=== PATIENT | male | born 1970 ===

== ENCOUNTER 2017-05-16 08:25 | Emergency (ER) | payer SELFPAY ==
[2017-05-16 08:31] VITALS: TEMP 98.2
[2017-05-16] MEDS ORDERED: Sodium Chloride 0.9% 1,000 ML IV ONE (09:40)
[2017-05-16] MEDS ORDERED: Sodium Chloride 0.9% 1,000 ML ONE (09:55)
[2017-05-16 10:12] LABS: BASO # 0.1 K/uL (0.0-0.2); BASO % 0.6 % (0.0-2.0); EOS % 0.4 % (0.0-4.0); HEMATOCRIT 41.2 % (35.0-51.0); LYMPH # 1.2 K/uL (1.0-4.3); LYMPH % 9.8 % (20.0-40.0); MEAN CELL VOLUME 89.5 fL (80.0-94.0); MEAN CORPUSCULAR HGB CONC 33.5 g/dL (33.0-37.0); MEAN PLATELET VOLUME 8.1 fL (7.2-11.7); MONO # 0.5 K/uL (0.0-0.8); MONO % 4.2 % (0.0-10.0); PLATELET COUNT 226 K/uL (130-400); RED CELL DISTRIBUTION WIDTH 13.8 % (11.5-14.5)
[2017-05-16 10:13] LABS: WHITE BLOOD COUNT 12.5 K/uL (4.8-10.8)
[2017-05-16 10:15] LABS: RBC URINE 17 /hpf (0-3); URINE BACTERIA RARE (<OCC); URINE BILIRUBIN NEGATIVE (NEGATIVE); URINE BLOOD 2+ (NEGATIVE); URINE COLOR Yellow (YELLOW); URINE GLUCOSE (UA) NORMAL (Normal); URINE KETONE NEGATIVE (NEGATIVE); URINE LEUKOCYTE ESTERASE NEG Leu/uL (Negative); URINE PROTEIN 1+ mg/dL (NEGATIVE); URINE UROBILINOGEN NORMAL mg/dL (0.2-1.0); WBC URINE 2 /hpf (0-5)
[2017-05-16 10:29] LABS: CHLORIDE 103 mmol/L (98-107)
[2017-05-16 10:30] LABS: POTASSIUM 3.7 mmol/L (3.6-5.2); SODIUM 139 mmol/L (132-148)
--- NOTE | 2017-05-16 10:31 | C.PDOC ---
History Of Present Illness 46-year-old male, presents to the emergency department with complaints of diffuse abdominal pain, that is associated with distention, that started last night. Patient denies nausea/vomiting, diarrhea, fevers, chills, shortness of breath or any other associated symptoms. No other complaints at this time. Time Seen by Provider: 05/16/17 09:12 Chief Complaint (Nursing): Abdominal Pain History Per: Patient History/Exam Limitations: no limitations Onset/Duration Of Symptoms: Days Current Symptoms Are (Timing): Still Present Severity: Moderate Past Medical History Reviewed: Historical Data, Nursing Documentation, Vital Signs Vital Signs: Last Vital Signs Temp 98.2 F 05/16/17 12:12 Pulse 76 05/16/17 12:12 Resp 20 05/16/17 12:12 BP 117/82 05/16/17 12:12 Pulse Ox 97 05/16/17 12:12 - Medical History PMH: Hepatitis - [facility] Procedures CLOSED BIOPSY OF SKIN AND SUBCUTANEOUS TISSUE (11/16/13) COLONOSCOPY (01/09/14) ESOPHAGOGASTRODUODENOSCOPY [EGD] W/CLOSED BIOPSY (01/09/14) Family History: States: No Known Family Hx - Social History Hx Tobacco Use: No Hx Alcohol Use: No Hx Substance Use: No - Immunization History Hx Tetanus Toxoid Vaccination: No Hx Influenza Vaccination: No Hx Pneumococcal Vaccination: No Review Of Systems Except As Marked, All Systems Reviewed And Found Negative. Constitutional: Negative for: Fever, Chills Cardiovascular: Negative for: Chest Pain, Palpitations Respiratory: Negative for: Shortness of Breath Gastrointestinal: Positive for: Abdominal Pain (distention). Negative for: Nausea, Vomiting, Diarrhea, Constipation, Melena, Hematochezia Musculoskeletal: Negative for: Back Pain Skin: Negative for: Rash Neurological: Negative for: Weakness, Numbness Physical Exam - Physical Exam Appears: Non-toxic, No Acute Distress Skin: Warm, Dry, No Rash Head: Atraumatic, Normacephalic Eye(s): bilateral: Normal Inspection, PERRL Nose: Normal Oral Mucosa: Moist Lips: Normal Appearing Neck: Normal ROM Chest: Symmetrical, No Tenderness Cardiovascular: Rhythm Regular, No Murmur Respiratory: Normal Breath Sounds, No Accessory Muscle Use Gastrointestinal/Abdominal: Soft, Tenderness (epigastric/RUQ), Distention, No Guarding, No Rebound Back: Normal Inspection, No CVA Tenderness Extremity: Normal ROM, No Swelling Neurological/Psych: Oriented x3, Normal Speech, Normal Motor Gait: Steady ED Course And Treatment - Laboratory Results Result Diagrams: 05/16/17 09:52 05/16/17 09:52 ECG: Interpreted By Me ECG Rhythm: Sinus Bradycardia ECG Interpretation: Normal Rate From EC O2 Sat by Pulse Oximetry: 100 (on RA) Pulse Ox Interpretation: Normal Medical Decision Making Medical Decision Making: Results were discussed with the patient. On re-exam, the patient reports improvement of symptoms. BP improved. Lungs are CTA, heart is RRR, abdomen is soft, non-tender and patient is tolerating PO well. Ambulatory in the ED with steady gait. Follow up with the medical doctor within 1-2 days. Return if worsened. Disposition - Disposition Referrals: [facility] at [facility] [Outside] Disposition: HOME/ ROUTINE Disposition Time: 12:00 Condition: GOOD Additional Instructions: Follow up with the medical doctor within 1-2 days without fail. Return if worsened Prescriptions: Famotidine [Pepcid] 20 mg PO BID #20 tab Naproxen [Naprosyn] 500 mg PO BID #20 tab Instructions: Gallstones (ED) Print Language: ALBANIAN - Clinical Impression Clinical Impression: Abdominal pain, Cholelithiasis - PA / PRECAST MOLDER / Resident Statement MD/DO has reviewed & agrees with the documentation as recorded. - Scribe Statement The provider has reviewed the documentation as recorded by the Scribe (Colin Plascencia) All medical record entries made by the Scribe were at my direction and personally dictated by me. I have reviewed the chart and agree that the record accurately reflects my personal performance of the history, physical exam, medical decision making, and the department course for this patient. I have also personally directed, reviewed, and agree with the discharge instructions and disposition.
[2017-05-16 10:32] LABS: ALB/GLOB RATIO 1.3 (1.0-2.1); ALKALINE PHOSPHATASE 92 U/L (38-126); AST/SGOT 35 U/L (17-59); BILIRUBIN,TOTAL 0.6 mg/dL (0.2-1.3); BLOOD UREA NITROGEN 19 mg/dL (9-20); CARBON DIOXIDE 23 mmol/L (22-30); GFR AFRICAN-AMERICAN > 60; TOTAL PROTEIN 7.5 g/dL (6.3-8.3)
[2017-05-16 10:33] LABS: ALT/SGPT 40 U/L (21-72); GLUCOSE,RANDOM 126 mg/dL (75-110)
[2017-05-16 10:45] LABS: NEUTROPHIL 87 % (50-75); TOTAL CELLS COUNTED 100
--- NOTE | 2017-05-16 11:39 | US ---
Right upper quadrant abdominal ultrasound History: Abdominal pain. Comparison: None available. Technique: Real-time sonography was performed through the right upper quadrant of the abdomen. Findings: Liver: 18.4 centimeters in length. Increased echogenicity of the hepatic parenchymal cortex suggestive for fatty infiltration versus hepatic parenchymal disease. Gallbladder: Cholelithiasis. Normal wall thickness of 1.7 millimeters. No wall edema. Negative sonographic Abraham's sign. Common bile duct measures 2.8 millimeters, within normal limits. Limited visualization of the pancreas. Visualized aorta and IVC are preserved. Right kidney: 10.3 x 4.9 x 5.5 centimeters, within normal limits. Impression: Cholelithiasis. Increased echogenicity of the hepatic parenchymal cortex suggestive for fatty infiltration versus hepatic parenchymal disease. Limited visualization of the pancreas.
[2017-05-16 12:13] VITALS: BP 117/82; PULSE 76; RESP 20
--- NOTE | 2017-05-17 12:43 | CARD ---
APPROVED REPORT EKG Measurement Heart [id number] <Conclusion> Normal sinus rhythm Rightward axis Incomplete right bundle branch block Borderline ECG
[2017-05-17 18:00] VITALS: O2SAT 100
== END 2017-05-16 12:13 | disposition home or self-care (01) ==
LOC: C.ER 08:25
DX: K80.20 Calculus of gallbladder without cholecystitis without obstruction (principal)
CPT/HCPCS: 76705; 80053; 81001; 83690; 84484; 85025; 93005; 96361; 96374; 96375; 99284; J1885; J2405; J7040

== ENCOUNTER 2017-05-23 16:01 | Inpatient (IN) | payer OTHER, SELFPAY ==
--- NOTE | 2017-05-23 16:46 | C.PDOC ---
History Of Present Illness <Jaylene Maderakarine - Last Filed: 05/23/17 20:50> <PlacidogloManolo P - Last Filed: 05/24/17 19:27> 46M c/o diffuse abdominal pain and distension since yesterday. no f/c, n/v/d. He had the same sx last week for which he was seen here. his sx improved then recurred yesterday. no psh. (Manolo Rojas) <CassyJaylenekarnie - Last Filed: 05/23/17 20:50> <Manolo Rojas - Last Filed: 05/24/17 19:27> Time Seen by Provider: 05/23/17 16:45 Chief Complaint (Nursing): Abdominal Pain Past Medical History - Medical History PMH: Hepatitis Family History: States: Other Other Family History: nc - Social History Hx Tobacco Use: No Hx Alcohol Use: No Hx Substance Use: No - Immunization History Hx Tetanus Toxoid Vaccination: No Hx Influenza Vaccination: No Hx Pneumococcal Vaccination: No <Manolo Rojas - Last Filed: 05/24/17 19:27> Vital Signs: Last Vital Signs Temp 98.6 F 05/24/17 16:00 Pulse 78 05/24/17 16:00 Resp 18 05/24/17 16:00 BP 123/77 05/24/17 16:00 Pulse Ox 97 05/24/17 16:00 - [facility] Procedures CLOSED BIOPSY OF SKIN AND SUBCUTANEOUS TISSUE (11/16/13) COLONOSCOPY (01/09/14) ESOPHAGOGASTRODUODENOSCOPY [EGD] W/CLOSED BIOPSY (01/09/14) Review Of Systems Constitutional: Negative for: Fever, Weakness Cardiovascular: Negative for: Chest Pain Respiratory: Negative for: Cough, Shortness of Breath Gastrointestinal: Positive for: Abdominal Pain. Negative for: Nausea, Vomiting , Diarrhea, Hematochezia Genitourinary: Negative for: Dysuria Neurological: Negative for: Weakness, Numbness, Headache <Manolo Rojas - Last Filed: 05/24/17 19:27> Physical Exam - Physical Exam Appears: Well, Non-toxic, No Acute Distress Skin: Warm, Dry Head: Atraumatic Oral Mucosa: Moist Neck: Normal ROM Cardiovascular: Rhythm Regular Respiratory: No Decreased Breath Sounds, No Accessory Muscle Use, No Rales, No Rhonchi, No Wheezing Gastrointestinal/Abdominal: Soft, Tenderness, Distention, No Guarding, No Rebound Extremity: No Swelling Neurological/Psych: Oriented x3, Other (no focal deficits) <Manolo Rojas P - Last Filed: 05/24/17 19:27> ED Course And Treatment - Laboratory Results Result Diagrams: 05/23/17 17:17 05/23/17 17:17 Pulse Ox Interpretation: Normal <Jaylene Madera - Last Filed: 05/23/17 20:50> - Laboratory Results Result Diagrams: 05/24/17 08:10 05/24/17 08:10 O2 Sat by Pulse Oximetry: 99 <Manolo Rojas - Last Filed: 05/24/17 19:27> Disposition Discussed With : Noe Cain Comment: accepted the pt on her service and took over the care at 8:52 PM Doctor Will See Patient In The: ED Counseled Patient/Family Regarding: Studies Performed, Diagnosis - Disposition Disposition Time: 19:00 - POA Present On Arrival: None <CassyMarichuy - Last Filed: 05/23/17 20:50> <Manolo Rojas P - Last Filed: 05/24/17 19:27> - Disposition Disposition: HOSPITALIZED Condition: FAIR - Clinical Impression Clinical Impression: Abdominal pain, Cholelithiasis Decision To Admit - Pt Status Changed To: Hospital Disposition Of: Inpatient - Admit Certification Admit to Inpatient:: After my assessment, the patient will require hospitalization for at least two midnights. This is because of the severity of symptoms shown, intensity of services needed, and/or the medical risk in this patient being treated as an outpatient. - InPatient: Physician Admission Certification:: After my assessment, the patient will require hospitalization for at least two midnights. This is because of the severity of symptoms shown, intensity of services needed, and/or the medical risk in this patient being treated as an outpatient. - . Bed Request Type: Regular Admitting Physician: Noe Cain <Marichuy Madera - Last Filed: 05/23/17 20:50> <Manolo Rojas P - Last Filed: 05/24/17 19:27> - . Patient Diagnosis: Abdominal pain, Cholelithiasis Physician Patient Turnover Patient Signed Over To: Marichuy Madera Handoff Comments: pending CT <Manolo Rojas - Last Filed: 05/24/17 19:27>
--- NOTE | 2017-05-23 17:00 | C.PDOC ---
Time Seen by Provider: 05/23/17 16:45 Chief Complaint (Nursing): Abdominal Pain Past Medical History Vital Signs: Last Vital Signs Temp 98.9 F 05/23/17 16:32 Pulse 84 05/23/17 16:32 Resp 18 05/23/17 16:32 BP 120/75 05/23/17 16:32 Pulse Ox 99 05/23/17 16:32 - Medical History PMH: Hepatitis - [facility] Procedures CLOSED BIOPSY OF SKIN AND SUBCUTANEOUS TISSUE (11/16/13) COLONOSCOPY (01/09/14) ESOPHAGOGASTRODUODENOSCOPY [EGD] W/CLOSED BIOPSY (01/09/14) - Social History Hx Tobacco Use: No Hx Alcohol Use: No Hx Substance Use: No - Immunization History Hx Tetanus Toxoid Vaccination: No Hx Influenza Vaccination: No Hx Pneumococcal Vaccination: No ED Course And Treatment O2 Sat by Pulse Oximetry: 99
[2017-05-23] MEDS ORDERED: Sodium Chloride 0.9% 1,000 ML IV ONE (17:02)
[2017-05-23] MEDS ORDERED: Sodium Chloride 0.9% 1,000 ML ONE ×2 (17:18→22:38)
[2017-05-23 17:36] LABS: BASO % 0.5 % (0.0-2.0); EOS # 0.2 K/uL (0.0-0.7); EOS % 1.7 % (0.0-4.0); HEMOGLOBIN 12.9 g/dL (12.0-18.0); LYMPH # 1.8 K/uL (1.0-4.3); LYMPH % 16.6 % (20.0-40.0); MEAN CELL VOLUME 90.5 fL (80.0-94.0); MEAN CORPUSCULAR HEMOGLOBIN 29.9 pg (27.0-31.0); MONO % 9.1 % (0.0-10.0); NEUT # 7.6 K/uL (1.8-7.0); NEUT % 72.1 % (50.0-75.0); RBC 4.32 Mil/uL (4.40-5.90); RED CELL DISTRIBUTION WIDTH 13.9 % (11.5-14.5); WHITE BLOOD COUNT 10.6 K/uL (4.8-10.8)
[2017-05-23 17:48] LABS: ALBUMIN 3.8 g/dL (3.5-5.0)
[2017-05-23 17:49] LABS: URINE BILIRUBIN NEGATIVE (NEGATIVE); URINE BLOOD 2+ (NEGATIVE); URINE CLARITY Clear (Clear); URINE COLOR Yellow (YELLOW); URINE GLUCOSE (UA) NORMAL (Normal); URINE LEUKOCYTE ESTERASE NEG Leu/uL (Negative); URINE NITRATE NEGATIVE (NEGATIVE); URINE PROTEIN NEGATIVE (NEGATIVE); URINE UROBILINOGEN NORMAL mg/dL (0.2-1.0)
[2017-05-23 17:50] LABS: GFR AFRICAN-AMERICAN > 60; GFR NON-AFRICAN AMERICAN > 60
[2017-05-23 17:51] LABS: ALB/GLOB RATIO 1.1 (1.0-2.1); ALT/SGPT 27 U/L (21-72); AST/SGOT 27 U/L (17-59); BLOOD UREA NITROGEN 19 mg/dL (9-20); CALCIUM 8.5 mg/dl (8.6-10.4); LIPASE 45 U/L (23-300)
[2017-05-23] MEDS ORDERED: Iohexol 350mg/ml 100 ML ONE (18:04)
--- NOTE | 2017-05-23 19:59 | CT ---
EXAM: CT Abdomen and Pelvis With Intravenous Contrast CLINICAL HISTORY: 46 years old, male; Pain; Abdominal pain; Generalized TECHNIQUE: Axial computed tomography images of the abdomen and pelvis with intravenous contrast. This CT exam was performed using one or more of the following dose reduction techniques: automated exposure control, adjustment of the mA and/or kV according to patient size, and/or use of iterative reconstruction technique. Coronal and sagittal reformatted images were created and reviewed. CONTRAST: 100 mL of omnipaque 350 administered intravenously. EXAM DATE/TIME: Exam ordered 05/23/2017 5:02 PM COMPARISON: No relevant prior studies available. FINDINGS: Lower thorax: No acute findings. ABDOMEN: Liver: A 9 mm low density lesion is noted in the lateral segment of the left lobe of the liver with a density measurement of 7H. A second low-density lesion is noted in the lateral segment of the left lobe towards the midline measuring 8 mm with a density measurement of 11 H. Gallbladder and bile ducts: There is mild gallbladder wall thickening and pericholecystic inflammatory change. No ductal dilation. Pancreas: Unremarkable. No mass. No ductal dilation. Spleen: Unremarkable. No splenomegaly. Adrenals: Unremarkable. No mass. Kidneys and ureters: Unremarkable. No solid mass. No hydronephrosis. Stomach and bowel: There are scattered colonic diverticula. No obstruction. No mucosal thickening. Appendix: No findings to suggest acute appendicitis. PELVIS: Bladder: Unremarkable. No mass. Reproductive: The prostate measures 3.7 x 4.6 x 4.3 cm. ABDOMEN and PELVIS: Intraperitoneal space: Unremarkable. No free air. No significant fluid collection. Bones/joints: Coarse calcifications are noted within the fat of the left posterior abdominal wall just above the left superior iliac margin. No acute fracture. No dislocation. Soft tissues: See above. Vasculature: Unremarkable. No abdominal aortic aneurysm. Lymph nodes: Unremarkable. No enlarged lymph nodes. Other findings: IMPRESSION: 1. Gallbladder wall thickening with john-cholecystic inflammatory changes suggests acute cholecystitis. I spoke with Dr. Alvares indicated the patient had an ultrasound approximately a week ago that showed gallstones. This is consistent with acute calculous cholecystitis. 2. Liver cysts. 3. Scattered colonic diverticula. 4. Coarse calcification is noted within subcutaneous fat of the left posterior abdominal wall. This may reflect chronic fat necrosis Images were attached to this report and are available at [email or web address]
[2017-05-23] MEDS ORDERED: Morphine 4 MG/ML VIAL IVP PRN (22:10)
[2017-05-23] MEDS ORDERED: Piperacillin/Tazobact 3.375 gm 100 ML IVPB ONE (22:38)
--- NOTE | 2017-05-23 22:38 | US ---
EXAM: US Abdomen Limited, Right Upper Quadrant CLINICAL HISTORY: 46 years old, male; Pain; Abdominal pain; Generalized; Additional info: Ruq pain, gallbladder inflammation on CT TECHNIQUE: Real-time ultrasound of the right upper quadrant with image documentation. COMPARISON: No relevant prior studies available. FINDINGS: Liver: Enlarged, 19.1 cm. Fatty infiltration. Probable 1.0 x 0.7 x 1.0 cm cyst. No intrahepatic ductal dilatation. Gallbladder: Gallstones. Sludge. 0.44 cm wall thickness. Small pericholecystic fluid. No sonographic Abraham's sign. Common bile duct: No dilatation. No stones. Pancreas: Unremarkable as visualized. Right kidney: Normal echogenicity. No hydronephrosis. IMPRESSION: 1. Findings concerning for acute cholecystitis. Clinical correlation is needed. 2. Incidental/non-acute findings are described above.
[2017-05-23] MEDS: Sodium Chloride 0.9% 1,000 ML IV SCH (22:42)
[2017-05-23] MEDS: Piperacillin/Tazobact 3.375 GM in Sodium Chloride 100 ML IVPB SCH (22:42)
--- NOTE | 2017-05-24 00:19 | CP.PCM.HP ---
History of Present Illness - History of Present Illness History of Present Illness: H&P for Dr. Cain CC: RUQ abd pain Patient is a 46M with PMH of rhabdomyolysis presented to the ER with upper abdominal pain and nausea. Patient presented to the ER on 05/19 and was diagnosed with cholelithiasis without cholecystits on US. Patient was discharged for outpatient follow up. Patient returned tonight because pain did not improve but only got worse since yesterday and was accompanied by nausea, but not vomiting. Patient states that the pain is in his RUQ and epigastrium but occasionally radiates to this lateral ribs bilaterally. Patient denies any diarrhea, melena, hematochezia, fevers, chills, or any other symptoms. CT of abdomen and pelvis: mild gall bladder wall thickening and pericholecystic inflammatory changes, no duct dilation, liver cysts, colon diverticula US: cholelithiasis, wall 4-5mm thick, small pericholecystic fluid, CBD 3.3mm WBC: wnl LFT: wnl PMH: rhabdomyolysis PSH: skin biopsy, dental ALL: none, though patient had symptoms similar to Rhabdomyolysis after anesthesia for dental procedure Social: denies tobacco, social ETOH, denies illicit drugs Present on Admission - Present on Admission Any Indicators Present on Admission: No Review of Systems - Review of Systems All systems: reviewed and no additional remarkable complaints except (as per HPI ) - Constitutional Constitutional: As Per HPI. absent: Chills, Fever - Cardiovascular Cardiovascular: absent: Chest Pain, Chest Pain at Rest, Pedal Edema - Respiratory Respiratory: absent: As Per HPI, Cough, Dyspnea, Dyspnea on Exertion - Gastrointestinal Gastrointestinal: As Per HPI, Abdominal Pain (RUQ>epigastrium>LUQ), Nausea. absent: Constipation, Diarrhea, Hematemesis, Hematochezia, Melena, Vomiting - Genitourinary Genitourinary: absent: Difficulty Urinating, Dysuria, Hematuria - Musculoskeletal Musculoskeletal: Back Pain, Muscle Weakness - Neurological Neurological: Weakness. absent: Focal Weakness Past Patient History - Infectious Disease Hx of Infectious Diseases: None - Past Social History Smoking Status: Never Smoked Alcohol: Social Drugs: Denies - HEMATOLOGICAL/ONCOLOGICAL Hx Hepatitis A: No Hx Hepatitis B: No Hx Hepatitis C: No Hx Human Immunodeficiency Virus (HIV): No - GASTROINTESTINAL Hx Gall Bladder Disease: Yes - PSYCHIATRIC Hx Substance Use: No - SURGICAL HISTORY Hx Surgeries: No - ANESTHESIA Hx Anesthesia: Yes Hx Anesthesia Reactions: Yes (muscle weakness/pain) Meds Allergies/Adverse Reactions: Allergies Allergy/AdvReac Type Severity Reaction Status Date / Time No Known Allergies Allergy Verified 09/03/14 08:32 Physical Exam - Constitutional Appears: Well, Non-toxic, No Acute Distress - Head Exam Head Exam: ATRAUMATIC, NORMOCEPHALIC - Eye Exam Eye Exam: EOMI, Scleral icterus. absent: Conjunctival injection, Normal appearance - ENT Exam ENT Exam: Mucous Membranes Moist, Normal Oropharynx - Respiratory Exam Respiratory Exam: NORMAL BREATHING PATTERN. absent: Accessory Muscle Use, Respiratory Distress - Cardiovascular Exam Cardiovascular Exam: RRR - GI/Abdominal Exam GI & Abdominal Exam: Distended (mild distention), Soft, Tenderness (RUQ> epigastrium) Additional comments: positive lopez's sign - Extremities Exam Extremities exam: Positive for: pedal pulses present. Negative for: calf tenderness, pedal edema - Back Exam Back exam: absent: CVA tenderness (L), CVA tenderness (R), rash noted - Neurological Exam Neurological exam: Alert, Oriented x3 - Psychiatric Exam Psychiatric exam: Normal Affect, Normal Mood - Skin Skin Exam: Dry, Intact, Normal Color, Warm Results - Vital Signs Recent Vital Signs: Last Vital Signs Temp 98.6 F 05/23/17 22:29 Pulse 67 05/23/17 22:29 Resp 16 05/23/17 22:29 BP 113/72 05/23/17 22:29 Pulse Ox 97 05/23/17 22:29 - Labs Result Diagrams: 05/23/17 17:17 05/23/17 17:17 - Imaging and Cardiology CT scan - abdomen Status: Image reviewed by me, Report reviewed by me US - abdomen Status: Image reviewed by me, Report reviewed by me Assessment & Plan - Assessment and Plan (Free Text) Assessment: 46M with PMH of rhabdomyolysis with recent diagnosis of cholelithiasis on ultrasound with acute cholecystitis and cholelithiasis afebrile, VSS US: signs of acute cholecystitis without choledocholithiasis WBC: wnl, LFT's: wnl PLAN: - OR tomorrow AM for laparoscopic cholecystectomy -NPO after midnight -IVF -CBC/CMP in the AM -analgesic, anti-emetics, GI ppx, SC -zosyn -incentive spirometer Discussed with Dr. Ant Chopra, PGY2
[2017-05-24] MEDS: Piperacillin/Tazobact 3.375 GM in Sodium Chloride 100 ML IVPB SCH ×4 (05:35→22:26)
[2017-05-24 08:29] LABS: BASO # 0.1 K/uL (0.0-0.2); BASO % 0.5 % (0.0-2.0); EOS # 0.2 K/uL (0.0-0.7); EOS % 1.8 % (0.0-4.0); HEMOGLOBIN 12.8 g/dL (12.0-18.0); LYMPH # 1.6 K/uL (1.0-4.3); LYMPH % 16.5 % (20.0-40.0); MEAN CELL VOLUME 90.8 fL (80.0-94.0); MEAN CORPUSCULAR HEMOGLOBIN 30.2 pg (27.0-31.0); MEAN CORPUSCULAR HGB CONC 33.2 g/dL (33.0-37.0); MEAN PLATELET VOLUME 8.1 fL (7.2-11.7); MONO # 0.7 K/uL (0.0-0.8); MONO % 6.7 % (0.0-10.0); NEUT # 7.3 K/uL (1.8-7.0); NEUT % 74.5 % (50.0-75.0); RBC 4.23 Mil/uL (4.40-5.90); RED CELL DISTRIBUTION WIDTH 14.1 % (11.5-14.5); WHITE BLOOD COUNT 9.8 K/uL (4.8-10.8)
[2017-05-24 08:30] LABS: INR 1.1; PROTHROMBIN TIME 12.9 SECONDS (9.7-12.2)
[2017-05-24 08:43] LABS: ALBUMIN 3.4 g/dL (3.5-5.0)
[2017-05-24 08:46] LABS: AST/SGOT 22 U/L (17-59); GFR AFRICAN-AMERICAN > 60; GFR NON-AFRICAN AMERICAN > 60
[2017-05-24 08:47] LABS: ALT/SGPT 37 U/L (21-72); BLOOD UREA NITROGEN 13 mg/dL (9-20)
--- NOTE | 2017-05-24 09:33 | RAD ---
PROCEDURE: CHEST RADIOGRAPH, 1 VIEW HISTORY: pre-op eval COMPARISON: Comparison chest 11/20/2013 FINDINGS: LUNGS: Poor inspiration with low lung volumes, crowded bronchovascular markings and mild bibasilar atelectasis. PLEURA: No pneumothorax or pleural fluid seen. CARDIOVASCULAR: Heart size is borderline enlarged. OSSEOUS STRUCTURES: No significant abnormalities. VISUALIZED UPPER ABDOMEN: Normal. OTHER FINDINGS: None. IMPRESSION: Poor inspiration with low lung volumes, crowded bronchovascular markings and mild bibasilar atelectasis.
[2017-05-24] MEDS ORDERED: Propofol 10 mg/ml Inj (20 ML) ONE ×4 (09:40→10:35)
[2017-05-24] MEDS ORDERED: Midazolam 2 MG/2 ML VIAL ONE ×2 (09:40→10:13)
[2017-05-24] MEDS ORDERED: Neostigmine Methylsulfate 3mg/3ml Syringe IV ONE (10:08)
--- NOTE | 2017-05-24 10:54 | PCM.SURG1 ---
Surgeon's Initial Post Op Note - Surgeon's Notes Surgeon: Dr. Cain Manager Pipeline: Dr. Farfan PGY3 Type of Anesthesia: General Endo Pre-Operative Diagnosis: acute cholecystitis Operative Findings: acutely inflammed gallbladder Post-Operative Diagnosis: same Operation Performed: laparoscopic cholecystectomy Specimen/Specimens Removed: gallbladder Estimated Blood Loss: EBL {In ML}: 20 Blood Products Given: N/A Drains Used: No Drains Post-Op Condition: Good Date of Surgery/Procedure: 05/24/17 Time of Surgery/Procedure: 10:54
[2017-05-24] MEDS ORDERED: Morphine 4 MG/ML VIAL IVP PRN (10:55)
[2017-05-24] MEDS ORDERED: Oxycodone/Acetaminophen 5/325 mg Tab PO PRN ×2 (10:55)
[2017-05-24] MEDS ORDERED: HYDROmorphone 0.5 mg/0.5 ml ISec IVP PRN (10:56)
[2017-05-24] MEDS: Sodium Chloride 0.9% 1,000 ML IV SCH ×2 (14:52→22:30)
[2017-05-25 02:00] VITALS: RESP 20
[2017-05-25] MEDS: Piperacillin/Tazobact 3.375 GM in Sodium Chloride 100 ML IVPB SCH ×2 (05:27→10:09)
[2017-05-25] MEDS: Sodium Chloride 0.9% 1,000 ML IV SCH (06:40)
[2017-05-25 07:51] LABS: BASO # 0.1 K/uL (0.0-0.2); BASO % 0.7 % (0.0-2.0); EOS # 0.1 K/uL (0.0-0.7); EOS % 1.8 % (0.0-4.0); LYMPH # 1.6 K/uL (1.0-4.3); LYMPH % 19.7 % (20.0-40.0); MEAN CELL VOLUME 91.2 fL (80.0-94.0); MEAN CORPUSCULAR HEMOGLOBIN 30.4 pg (27.0-31.0); MEAN CORPUSCULAR HGB CONC 33.3 g/dL (33.0-37.0); MEAN PLATELET VOLUME 8.1 fL (7.2-11.7); MONO # 0.6 K/uL (0.0-0.8); MONO % 7.6 % (0.0-10.0); NEUT # 5.9 K/uL (1.8-7.0); NEUT % 70.2 % (50.0-75.0); RBC 3.95 Mil/uL (4.40-5.90); RED CELL DISTRIBUTION WIDTH 14.1 % (11.5-14.5); WHITE BLOOD COUNT 8.3 K/uL (4.8-10.8)
[2017-05-25 08:14] LABS: ALBUMIN 3.2 g/dL (3.5-5.0)
[2017-05-25 08:17] LABS: AST/SGOT 37 U/L (17-59); BLOOD UREA NITROGEN 14 mg/dL (9-20); GFR AFRICAN-AMERICAN > 60; GFR NON-AFRICAN AMERICAN > 60
[2017-05-25 08:18] LABS: ALT/SGPT 41 U/L (21-72); CALCIUM 8.1 mg/dl (8.6-10.4)
[2017-05-25] MEDS ORDERED: Pneumococcal 23-Valent Vaccine IM ONE (10:00)
[2017-05-25 11:40] VITALS: BP 130/86; PULSE 69; TEMP 98.8; O2SAT 97
--- NOTE | 2017-05-25 12:58 | CP.PCM.DIS ---
Provider - Provider Date of Admission: 05/23/17 21:02 Attending physician: Noe Cain MD Primary care physician: Unknown Consults: None Time Spent in preparation of Discharge (in minutes): 60 Diagnosis - Discharge Diagnosis (1) Cholecystitis, acute with cholelithiasis Status: Acute Hospital Course - Lab Results Lab Results: Most Recent Lab Values WBC 8.3 K/uL (4.8-10.8) 05/25/17 07:17 RBC 3.95 Mil/uL (4.40-5.90) L 05/25/17 07:17 Hgb 12.0 g/dL (12.0-18.0) 05/25/17 07: Hct 36.0 % (35.0-51.0) 05/25/17 07: MCV 91.2 fL (80.0-94.0) 05/25/17 07: MCH 30.4 pg (27.0-31.0) 05/25/17 07: MCHC 33.3 g/dL (33.0-37.0) 05/25/17 07: RDW 14.1 % (11.5-14.5) 05/25/17 07:17 Plt Count 202 K/uL (130-400) 05/25/17 07: MPV 8.1 fL (7.2-11.7) 05/25/17 07:17 Neut % (Auto) 70.2 % (50.0-75.0) 05/25/17 07:17 Lymph % (Auto) 19.7 % (20.0-40.0) L 05/25/17 07:17 [place] % (Auto) 7.6 % (0.0-10.0) 05/25/17 07:17 Eos % (Auto) 1.8 % (0.0-4.0) 05/25/17 07:17 Baso % (Auto) 0.7 % (0.0-2.0) 05/25/17 07:17 Neut # 5.9 K/uL (1.8-7.0) 05/25/17 07:17 Lymph # 1.6 K/uL (1.0-4.3) 05/25/17 07:17 [place] # 0.6 K/uL (0.0-0.8) 05/25/17 07:17 Eos # 0.1 K/uL (0.0-0.7) 05/25/17 07:17 Baso # 0.1 K/uL (0.0-0.2) 05/25/17 07:17 PT 12.9 SECONDS (9.7-12.2) H 05/24/17 08:10 INR 1.1 05/24/17 08:10 APTT 30 SECONDS (21-34) 05/24/17 08:10 Sodium 140 mmol/L (132-148) 05/25/17 07:14 Potassium 3.6 mmol/L (3.6-5.2) 05/25/17 07:14 Chloride 108 mmol/L (98-107) H 05/25/17 07:14 Carbon Dioxide 24 mmol/L (22-30) 05/25/17 07:14 Anion Gap 12 (10-20) 05/25/17 07:14 BUN 14 mg/dL (9-20) 05/25/17 07:14 Creatinine 0.9 MG/DL (0.8-1.5) 05/25/17 07:14 Est GFR ( Amer) > 60 05/25/17 07:14 Est GFR (Non-Af Amer) > 60 05/25/17 07:14 Random Glucose 98 mg/dL (75-110) 05/25/17 07:14 Calcium 8.1 mg/dl (8.6-10.4) L 05/25/17 07:14 Total Bilirubin 1.0 mg/dL (0.2-1.3) 05/25/17 07:14 AST 37 U/L (17-59) 05/25/17 07:14 ALT 41 U/L (21-72) 05/25/17 07:14 Alkaline Phosphatase 71 U/L (38-126) 05/25/17 07:14 Total Protein 6.6 g/dL (6.3-8.3) 05/25/17 07:14 Albumin 3.2 g/dL (3.5-5.0) L 05/25/17 07:14 Globulin 3.3 gm/dL (2.2-3.9) 05/25/17 07:14 Albumin/Globulin Ratio 1.0 (1.0-2.1) 05/25/17 07:14 Lipase 45 U/L (23-300) 05/23/17 17:17 Urine Color Yellow (YELLOW) 05/23/17 17:17 Urine Clarity Clear (Clear) 05/23/17 17:17 Urine pH 6.0 (5.0-8.0) 05/23/17 17:17 Ur Specific [place] 1.019 (1.003-1.030) 05/23/17 17:17 Urine Protein Negative mg/dL (NEGATIVE) 05/23/17 17:17 Urine Glucose (UA) Normal mg/dL (Normal) 05/23/17 17:17 Urine Ketones Negative mg/dL (NEGATIVE) 05/23/17 17:17 Urine Blood 2+ (NEGATIVE) H 05/23/17 17:17 Urine Nitrate Negative (NEGATIVE) 05/23/17 17:17 Urine Bilirubin Negative (NEGATIVE) 05/23/17 17:17 Urine Urobilinogen Normal mg/dL (0.2-1.0) 05/23/17 17:17 Ur Leukocyte Esterase Neg Girma/uL (Negative) 05/23/17 17:17 Urine WBC (Auto) < 1 /hpf (0-5) 05/23/17 17:17 Urine RBC (Auto) 14 /hpf (0-3) H 05/23/17 17:17 - Hospital Course Hospital Course: 46M admitted to hospital for acute cholecystitis and cholelithiasis, taken to OR for cholecystectomy. Pt tolerated procedure well, no complications, pain well controlled. Pt stable and ready for discharge home with follow up instructions and pain medication Rx. - Date & Time of H&P Date of H&P: 05/24/17 Time of H&P: 00:06 Discharge Exam - Head Exam Head Exam: ATRAUMATIC, NORMAL INSPECTION, NORMOCEPHALIC - Eye Exam Eye Exam: EOMI, Normal appearance - ENT Exam ENT Exam: Mucous Membranes Moist, Normal Exam - Neck Exam Neck exam: Full Rom, Normal Inspection - Respiratory Exam Respiratory Exam: Clear to PA & Lateral, NORMAL BREATHING PATTERN, UNREMARKABLE. absent: Wheezes, Respiratory Distress - Cardiovascular Exam Cardiovascular Exam: REGULAR RHYTHM, +S1, +S2 - GI/Abdominal Exam GI & Abdominal Exam: Normal Bowel Sounds, Soft, Tenderness (minimal, surrounding surgical incisions), Unremarkable. absent: Distended, Firm, Guarding, Rebound, Rigid - Extremities Exam Extremities exam: normal inspection - Neurological Exam Neurological exam: Alert, CN II-XII Intact, Oriented x3 - Psychiatric Exam Psychiatric exam: Normal Affect, Normal Mood - Skin Skin Exam: Dry, Intact, Normal Color, Warm Additional comments: abdominal incision sites without erythema or drainage, well approximated, minimally tender to palpation Discharge Plan - Discharge Medications Prescriptions: oxyCODONE/Acetaminophen [Percocet 5/325 mg Tab] 1 tab PO Q4H PRN #12 tab PRN Reason: Pain, Moderate (4-7) - Follow Up Plan Condition: GOOD Disposition: HOME/ ROUTINE Additional Instructions: Patient cleared for discharge home as per Dr. Cain. Ok for patient to shower. Patient's surgical sites have a special glue on them, it will fall off by itself. Do not pull it off. Ok to gently clean surgical sites with soap and water only. Please follow up with Dr. Cain in 2 weeks in the office. You are being given a prescription medication for pain, only take if you need it. No heavy lifting for 4-6 weeks. Please return to hospital if you have fevers, chills, or your surgical sites start to bleed a lot.
--- NOTE | 2017-05-30 12:44 | CARD ---
APPROVED REPORT EKG Measurement Heart [id number] <Conclusion> Normal sinus rhythm Normal ECG
--- NOTE | 2017-06-02 12:37 | PCM.OP ---
Operative Report - Operative Report Date of Surgery/Procedure: 05/24/17 Time of Surgery/Procedure: 09:30 Surgeon: Dr. Ant M.D. Casing Tester: Dr Adolph SAMUEL Anesthesia/Sedation: General, Dr. Alvarez Pre-Operative Diagnosis: Acute cholecystitis Post-Operative Diagnosis: Acute cholecystitis Indication for Surgery: Acute cholecystitis Operative Findings: The gallbladder was identified, it was acutely inflamed and intensely distended. The gallbladder was aspirated of approximately 20 ml of white bile, allowing the gallbladder fundus to be grasped and elevated. Omental adhesions to the peritoneal surface of the gallbladder were taken down to expose the infundibulum and the infundibulum was grasped and retracted laterally. The cystic duct was identified and dissected. The cystic duct was cleared down toward the junction with the common bile duct, the cystic duct was then triply clipped and divided close to the gallbladder. The cystic artery was similarly identified and dissected. The cystic artery also was triply clipped and divided and the gallbladder was dissected free of the liver bed using electric cautery. Liver bed was inspected for hemostasis and the dissection was completed. The gallbladder was placed in a specimen retrieval bag and removed via the umbilical port site. Procedure/Operation Description: Patient in the supine position under adequate general anesthesia. The abdomen was prepped and draped in the usual sterile manner. Veress needle puncture was performed at the umbilicus with insufflation to 15 cm water pressure of C02 and a 10mm laparoscopic trocar was inserted via and in from the local incision. Under direct vision additional trocars were inserted in the epigastrium and right costal margin. Right upper quadrant was irrigated and suctioned. The pneumoperitoneum was released and the trocars were removed. The umbilical port side was closed with a figure 8 facil suture of 0- vicryl. All incisions were closed with 4-0 monocryl, subcuticular sutures and steri strips. Dry sterile dressings were applied. Estimated Blood Loss: 20ml Complications: The patient tolerated the procedure well. Discharge & Condition: Transferred to the recovery room in stable condition.
== END 2017-05-25 14:21 | disposition home or self-care (01) | DRG 419 ==
LOC: C.ER 16:01 → C.9E 21:02 → C.6T 22:10
PROVIDERS: ADMIT Specialist; ATTEND Specialist
PROC: 0FT44ZZ Resection of Gallbladder, Percutaneous Endoscopic Approach (ICD-10-PCS; principal; 2017-05-24 09:00)
DX: K80.00 Calculus of gallbladder with acute cholecystitis without obstruction (principal)